=== PATIENT | female | born 1945 | race Caucasian/White ===

== ENCOUNTER → 2023-08-01 08:53 | Outpatient (REF) | payer MEDICARE, OTHER, SELFPAY ==
[2023-08-01 09:33] LABS: % Basophils 0.8 % (0-2); % Eosinophils 2.2 % (0-6); % Immature Granulocytes 0.5 % (0-0.5); % Lymphocytes 22.4 % (20.5-51.1); % Monocytes 8.9 % (1.7-9.3); % Neutrophils 65.2 % (42.2-75.2); Absolute Eosinophils 0.1 10^3/uL (0-0.7); Absolute Lymphocytes 0.8 10^3/uL (1.2-3.4); Absolute Monocytes 0.3 10^3/uL (0.1-0.6); Absolute Neutrophils 2.4 10^3/uL (1.4-6.5); Hematocrit 34.1 % (37.0-47.0); Hemoglobin 11.4 g/dL (12.0-16.0); Mean Corp Hgb Conc. 33.4 g/dL (33.0-37.0); Mean Corpuscular Volume 95.8 fL (81.0-99.0); Mean Platelet Volume 12.6 fL (7.4-10.4); Nucleated Red Blood Cells % 0 %; Platelet Count 116 10^3/uL (130-400); Red Blood Cell Count 3.56 10^6/uL (4.20-5.40); Red Cell Dist. Width 12.9 % (11.5-14.5); White Blood Cell Count 3.7 10^3/uL (4.8-10.8)
[2023-08-01 10:00] LABS: ALT (SGPT) 24 U/L (0-35); AST (SGOT) 34 U/L (14-36); Albumin 3.7 g/dl (3.5-5.0); Alkaline Phosphatase 103 U/L (38-126); Blood Urea Nitrogen 19 mg/dl (7-17); Calcium 8.9 mg/dl (8.4-10.2); Carbon Dioxide 29 mmol/L (22-30); Chloride 108 mmol/L (98-107); Glucose 87 mg/dl (70-99); LDH 220 U/L (120-246); Sodium 138 mmol/L (135-145); Total Bilirubin 0.8 mg/dl (0.2-1.3); Total Protein 5.8 g/dl (6.3-8.2); eGFR 23.82
[2023-08-03 02:05] LABS: Beta-2-Microglobulin 4.8 mg/L (<=3.0)
[2023-08-04 17:23] LABS: Albumin 3.74 g/dL (3.75-5.01); Alpha 1 Globulin 0.29 g/dL (0.19-0.46); Free Kappa Light Chains,Quant 98.97 mg/L (3.30-19.40); Free Lambda Light Chains,Quant 17.68 mg/L (5.71-26.30); IgA 85 mg/dL (68-408); IgG 388 mg/dL (768-1632); IgM 405 mg/dL (35-263); Immunofixation Electrophoresis IFE Done; Monoclonal Protein 0.31 g/dL
== END ==
LOC: REG 08:53
PROVIDERS: ATTENDING PHYSICIAN Internal Medicine Hematology & Oncology; FAMILY PHYSICIAN Family Medicine; REFERRING PHYSICIAN Internal Medicine
DX: C88.4 Extranodal marginal zone B-cell lymphoma of mucosa-associated lymphoid tissue [MALT-lymphoma] (principal); C83.03 Small cell B-cell lymphoma, intra-abdominal lymph nodes; C88.0 Waldenstrom macroglobulinemia; Z45.2 Encounter for adjustment and management of vascular access device; Z51.11 Encounter for antineoplastic chemotherapy
CPT/HCPCS: 36415; 80053; 82232; 82784; 83521; 83615; 84155; 84165; 85025; 86334

== ENCOUNTER → 2023-10-30 08:08 | Outpatient (REF) | payer MEDICARE, OTHER, SELFPAY ==
[2023-10-30 12:37] LABS: Albumin 4.1 g/dl (3.5-5.0); Blood Urea Nitrogen 23 mg/dl (7-17); Calcium 9.3 mg/dl (8.4-10.2); Carbon Dioxide 27 mmol/L (22-30); Chloride 106 mmol/L (98-107); Glucose 90 mg/dl (70-99); Phosphorus 3.9 mg/dl (2.5-4.5); Potassium 4.1 mmol/L (3.5-5.1); Sodium 141 mmol/L (135-145); Urine Protein 21 mg/dl (0-12); eGFR 23.82
[2023-11-01 16:02] LABS: Intact PTH 191.4 pg/ml (13.6-85.8)
== END ==
LOC: REG 08:08
PROVIDERS: ATTENDING PHYSICIAN Internal Medicine; FAMILY PHYSICIAN Family Medicine; OTHER PHYSICIAN Internal Medicine Hematology & Oncology; REFERRING PHYSICIAN Internal Medicine Cardiovascular Disease
DX: N18.32 Chronic kidney disease, stage 3b (principal)
CPT/HCPCS: 36415; 80069; 82570; 83970; 84156

== ENCOUNTER → 2023-11-07 07:47 | Outpatient (REF) | payer MEDICARE, OTHER, SELFPAY ==
[2023-11-07 09:45] LABS: Albumin 3.9 g/dl (3.5-5.0); Blood Urea Nitrogen 26 mg/dl (7-17); Calcium 9.2 mg/dl (8.4-10.2); Carbon Dioxide 25 mmol/L (22-30); Chloride 109 mmol/L (98-107); Glucose 89 mg/dl (70-99); Potassium 4.2 mmol/L (3.5-5.1); Sodium 141 mmol/L (135-145); eGFR 25.26
[2023-11-07 10:00] LABS: Vitamin D, 25-OH*** 80.4 ng/mL (30-80)
== END ==
LOC: REG 07:47
PROVIDERS: ATTENDING PHYSICIAN Internal Medicine; FAMILY PHYSICIAN Family Medicine; OTHER PHYSICIAN Internal Medicine Cardiovascular Disease; REFERRING PHYSICIAN Internal Medicine Hematology & Oncology
DX: N28.9 Disorder of kidney and ureter, unspecified (principal); I10 Essential (primary) hypertension; E78.5 Hyperlipidemia, unspecified; I50.22 Chronic systolic (congestive) heart failure
CPT/HCPCS: 36415; 80069; 82306

== ENCOUNTER → 2023-11-26 07:27 | Outpatient (REF) | payer MEDICARE, OTHER, SELFPAY ==
[2023-11-26 08:07] LABS: Urine Albumin Negative (Neg - Trace); Urine Bilirubin Negative (Negative); Urine Character Clear (Clear); Urine Color Yellow; Urine Glucose Negative (Negative); Urine Ketone Negative (Negative); Urine Leukocyte Trace (Negative); Urine Nitrite Negative (Negative); Urine Occult Blood Negative (Negative); Urine Urobilinogen Negative (Neg - 1+)
[2023-11-26 08:15] LABS: % Basophils 0.6 % (0-2); % Eosinophils 1.2 % (0-6); % Immature Granulocytes 0.4 % (0-0.5); % Lymphocytes 18.9 % (20.5-51.1); % Monocytes 10.5 % (1.7-9.3); % Neutrophils 68.4 % (42.2-75.2); Absolute Eosinophils 0.1 10^3/uL (0-0.7); Absolute Lymphocytes 0.9 10^3/uL (1.2-3.4); Absolute Monocytes 0.5 10^3/uL (0.1-0.6); Absolute Neutrophils 3.4 10^3/uL (1.4-6.5); Hematocrit 36.8 % (37.0-47.0); Hemoglobin 12.3 g/dL (12.0-16.0); Mean Corp Hgb Conc. 33.4 g/dL (33.0-37.0); Mean Corpuscular Hgb 31.4 pg (27.0-31.0); Mean Corpuscular Volume 93.9 fL (81.0-99.0); Mean Platelet Volume 12.1 fL (7.4-10.4); Nucleated Red Blood Cells % 0 %; Platelet Count 133 10^3/uL (130-400); Red Blood Cell Count 3.92 10^6/uL (4.20-5.40); Red Cell Dist. Width 12.5 % (11.5-14.5)
[2023-11-26 08:33] LABS: Urine Bacteria Few (Negative); Urine Red Blood Cell 0-2 /HPF (0-2); Urine White Cell 0-2 /HPF (0-5)
[2023-11-26 08:56] LABS: ALT (SGPT) 27 U/L (0-35); AST (SGOT) 34 U/L (14-36); Albumin 4.2 g/dl (3.5-5.0); Alkaline Phosphatase 125 U/L (38-126); Blood Urea Nitrogen 27 mg/dl (7-17); Calcium 9.1 mg/dl (8.4-10.2); Carbon Dioxide 27 mmol/L (22-30); Chloride 107 mmol/L (98-107); Glucose 92 mg/dl (70-99); HDL Cholesterol 80 mg/dl; LDH 251 U/L (120-246); LDL Cholesterol, Calculated 81 mg/dl; Potassium 3.9 mmol/L (3.5-5.1); Sodium 142 mmol/L (135-145); Total Bilirubin 0.7 mg/dl (0.2-1.3); Total Cholesterol 177 mg/dl (50-199); Total Protein 6.5 g/dl (6.3-8.2); Triglyceride 83 mg/dl (10-149); Very Low Density Lipoprotein 16 mg/dl (0-30); eGFR 23.82
[2023-11-26 09:28] LABS: TSH 5.04 uIU/ml (0.47-4.68)
[2023-11-28 20:07] LABS: Albumin 3.84 g/dL (3.75-5.01); Alpha 2 Globulin 0.79 g/dL (0.48-1.05); Free Kappa Light Chains,Quant 113.71 mg/L (3.30-19.40); Free Lambda Light Chains,Quant 17.38 mg/L (5.71-26.30); IgA 83 mg/dL (68-408); IgG 405 mg/dL (768-1632); IgM 382 mg/dL (35-263); Immunofixation Electrophoresis IFE Done; Kappa/Lambda Fr Light Ratio 6.54 (0.26-1.65); Monoclonal Protein 0.37 g/dL (<=0.00); Total Protein-Electrophoresis 6.2 g/dL (6.3-8.2)
== END ==
LOC: REG 07:27
PROVIDERS: ATTENDING PHYSICIAN Internal Medicine Hematology & Oncology; FAMILY PHYSICIAN Family Medicine; REFERRING PHYSICIAN Internal Medicine Cardiovascular Disease
DX: C88.4 Extranodal marginal zone B-cell lymphoma of mucosa-associated lymphoid tissue [MALT-lymphoma] (principal); C83.03 Small cell B-cell lymphoma, intra-abdominal lymph nodes; C88.0 Waldenstrom macroglobulinemia; Z45.2 Encounter for adjustment and management of vascular access device; Z51.11 Encounter for antineoplastic chemotherapy; Z00.00 Encounter for general adult medical examination without abnormal findings; N18.9 Chronic kidney disease, unspecified; I10 Essential (primary) hypertension
CPT/HCPCS: 36415; 80053; 80061; 81003; 81015; 82784; 83521; 83615; 84155; 84165; 84443; 85025; 86334

== ENCOUNTER → 2023-11-29 11:26 | Outpatient (REF) | payer MEDICARE, OTHER, SELFPAY | LOC: HWRAD 11:26 | PROVIDERS: ATTENDING PHYSICIAN Internal Medicine Hematology & Oncology; FAMILY PHYSICIAN Family Medicine | DX: C88.4 Extranodal marginal zone B-cell lymphoma of mucosa-associated lymphoid tissue [MALT-lymphoma] (principal); C83.03 Small cell B-cell lymphoma, intra-abdominal lymph nodes | CPT/HCPCS: 71250; 74176 ==

== ENCOUNTER 2023-12-09 10:14 | Day surgery (SDC) | payer MEDICARE, OTHER, SELFPAY ==
--- NOTE | 2023-12-09 08:40 | W.ICD.CONTRA ---
Post ICD/QUARTZ MINER-D
-
History of MD?: No
LV Function
Left ventricular function study result?: Ejection Fraction >/= 40%
ACEI/ARB/ARNI
Patient already on ACEI/ARB/ARNI: No
ACEI/ARB/ARNI Not Indicated: Left Ventricular EF >/= 40%
Beta-Jimmy
Patient already on Beta Jimmy: Yes
[2023-12-09 10:42] VITALS: BP 153/71
[2023-12-09 14:57] VITALS: BP 142/54
[2023-12-09 15:12] VITALS: BP 151/56
--- NOTE | 2023-12-09 15:18 | ITS.CL.ICD ---
Business Intelligence Consultant - ICD
Implantable Cardioverter Defibrillator
Procedure Report:
ICD GENERATOR CHANGE REPORT
Date of Procedure: December 09, 2023
PROCEDURES:
1. Removal of ICD Generator, 2. ICD Implant
INDICATION FOR PROCEDURE:
1. ICD at [facility]
2. CARDIOMYOPATHY
Life expectancy > 1 yr
'Time-out' was called and confirmed. The patient was prepped and draped in sterile fashion. Lidocaine with epi was used for local anesthesia. An incision was made along the previous incision and the device and leads were carefully dissected from
the pocket. Hemostasis was obtained with electrocautery. The leads were from the device header and tested using an external analyzer. The pocket was liberally irrigated with antibiotic solution. Once testing (see below) showed adequate
and stable function, the leads were connected to the generator header and the leads and generator were placed within the pocket. The pocket was closed in the typical fashion.
Of note, patient had bruising over the site of her ICD which was observed prior to our procedure today. Patient and family provides history that recently there were attempts to access her 'port', but multiple attempts at access were performed at
the anatomic location of her ICD on the left side and not her port on the right side. The multiple attempts at needle insertion at this site resulted in bruising.
Antibiotic pouch placed.
EXISTING ICD Medtronic
IMPLANTED ICD: MEDTRONIC [id number], [id number]
EXISTING LEADS:
RA: Medtronic 5076
RV: Medtronic 6935
LV: Medtronic 4298
DEVICE TESTING:
Sensing: RA 2 mV, RV 20 mV,
Capture: RA 0.5 V@ 0.4 ms, RV 1 V@ 0.4 ms, LV 1.25 V@ 0.4 ms,
Ohms: RA 361, RV 361, LV 589
FINAL PROGRAMMING:
Geovanny Pacing: DDDR 50 - 130 ppm
Tachy parameters:
VF: 188 bpm, ATP while charging, Shock
CONCLUSIONS:
1. Explant of ICD at [facility]
2. Successful implant ICD generator.
3. Normal function of ICD and leads at implant testing.
Note, this entire system is MRI compatible
RECOMMENDATIONS:
1. Observation and consideration for discharge home later today.
2. In-Office wound check in 7 - 10 days.
Copy to: Dr Chen Schaeffer
[2023-12-09 15:22] VITALS: BP 169/57
[2023-12-09 15:37] VITALS: BP 166/58
[2023-12-09 15:52] VITALS: BP 167/55
== END 2023-12-09 16:05 | disposition home or self-care (01) ==
LOC: CATH 10:14
PROVIDERS: ATTENDING PHYSICIAN Internal Medicine Cardiovascular Disease; FAMILY PHYSICIAN Family Medicine; OTHER PHYSICIAN Internal Medicine Cardiovascular Disease
DX: Z45.02 Encounter for adjustment and management of automatic implantable cardiac defibrillator (principal); I42.9 Cardiomyopathy, unspecified; I50.22 Chronic systolic (congestive) heart failure; I11.0 Hypertensive heart disease with heart failure; I34.0 Nonrheumatic mitral (valve) insufficiency; R91.1 Solitary pulmonary nodule; N28.9 Disorder of kidney and ureter, unspecified
CPT/HCPCS: 33264; C1882

== ENCOUNTER → 2024-01-01 08:23 | Outpatient (REF) | payer MEDICARE, OTHER, SELFPAY | LOC: RAD 08:23 | PROVIDERS: ATTENDING PHYSICIAN Family Medicine; OTHER PHYSICIAN Internal Medicine Critical Care Medicine; REFERRING PHYSICIAN Internal Medicine Cardiovascular Disease | DX: R91.8 Other nonspecific abnormal finding of lung field (principal) | CPT/HCPCS: 71046 ==

== ENCOUNTER → 2024-01-22 09:27 | Outpatient (REF) | payer MEDICARE, OTHER, SELFPAY | LOC: MRI 09:27 | PROVIDERS: ATTENDING PHYSICIAN Family Medicine | DX: G31.84 Mild cognitive impairment of uncertain or unknown etiology (principal) | CPT/HCPCS: 70551 ==

== ENCOUNTER → 2024-02-28 08:32 | Outpatient (REF) | payer MEDICARE, OTHER, SELFPAY ==
[2024-02-28 09:49] LABS: % Basophils 0.7 % (0-2); % Eosinophils 1.2 % (0-6); % Immature Granulocytes 0.2 % (0-0.5); % Monocytes 10.4 % (1.7-9.3); % Neutrophils 67.5 % (42.2-75.2); Absolute Eosinophils 0.1 10^3/uL (0-0.7); Absolute Lymphocytes 0.9 10^3/uL (1.2-3.4); Absolute Monocytes 0.4 10^3/uL (0.1-0.6); Absolute Neutrophils 2.9 10^3/uL (1.4-6.5); Hematocrit 34.4 % (37.0-47.0); Hemoglobin 11.8 g/dL (12.0-16.0); Mean Corp Hgb Conc. 34.3 g/dL (33.0-37.0); Mean Corpuscular Hgb 32.4 pg (27.0-31.0); Mean Corpuscular Volume 94.5 fL (81.0-99.0); Mean Platelet Volume 12.3 fL (7.4-10.4); Nucleated Red Blood Cells % 0 %; Platelet Count 127 10^3/uL (130-400); Red Blood Cell Count 3.64 10^6/uL (4.20-5.40); Red Cell Dist. Width 12.3 % (11.5-14.5); White Blood Cell Count 4.3 10^3/uL (4.8-10.8)
[2024-02-28 10:21] LABS: Erythrocyte Sed Rate 22 mm/hour (0-20)
[2024-02-28 10:36] LABS: ALT (SGPT) 31 U/L (0-35); AST (SGOT) 42 U/L (14-36); Alkaline Phosphatase 100 U/L (38-126); Blood Urea Nitrogen 24 mg/dl (7-17); Calcium 9.4 mg/dl (8.4-10.2); Carbon Dioxide 28 mmol/L (22-30); Chloride 105 mmol/L (98-107); Glucose 87 mg/dl (70-99); Potassium 4.3 mmol/L (3.5-5.1); Sodium 142 mmol/L (135-145); Total Bilirubin 0.8 mg/dl (0.2-1.3); Total Protein 6.1 g/dl (6.3-8.2); eGFR 25.26
[2024-02-28 11:06] LABS: TSH Reflex To Free T4 3.28 uIU/ml (0.47-4.68)
[2024-02-28 11:42] LABS: Folate > 20.0 ng/ml (2.76-20); Vitamin B12 > 1000 pg/ml (239-931)
== END ==
LOC: REG 08:32
PROVIDERS: ATTENDING PHYSICIAN Specialist; FAMILY PHYSICIAN Family Medicine; OTHER PHYSICIAN Internal Medicine Cardiovascular Disease; OTHER PHYSICIAN Internal Medicine Hematology & Oncology; REFERRING PHYSICIAN Internal Medicine
DX: G93.41 Metabolic encephalopathy (principal); Z79.899 Other long term (current) drug therapy; I10 Essential (primary) hypertension
CPT/HCPCS: 36415; 80053; 82607; 82746; 84443; 85025; 85652

== ENCOUNTER → 2024-03-23 08:17 | Outpatient (REF) | payer MEDICARE, OTHER, SELFPAY | LOC: RCS 08:17 | PROVIDERS: ATTENDING PHYSICIAN Internal Medicine Cardiovascular Disease; FAMILY PHYSICIAN Family Medicine | DX: I50.22 Chronic systolic (congestive) heart failure (principal) | CPT/HCPCS: 93306 ==

== ENCOUNTER → 2024-03-23 13:35 | Outpatient (REF) | payer MEDICARE, OTHER, SELFPAY | LOC: MRI 13:35 | PROVIDERS: ATTENDING PHYSICIAN Internal Medicine Gastroenterology; FAMILY PHYSICIAN Family Medicine | DX: D49.0 Neoplasm of unspecified behavior of digestive system (principal) | CPT/HCPCS: 74183; A9575 ==

== ENCOUNTER → 2024-04-07 08:11 | Outpatient (REF) | payer MEDICARE, OTHER, SELFPAY ==
[2024-04-07 10:30] LABS: Free T4 2.24 ng/dl (0.78-2.19)
[2024-04-07 10:44] LABS: TSH 2.68 uIU/ml (0.47-4.68)
== END ==
LOC: REG 08:11
PROVIDERS: ATTENDING PHYSICIAN Internal Medicine Cardiovascular Disease; FAMILY PHYSICIAN Family Medicine
DX: I50.22 Chronic systolic (congestive) heart failure (principal)
CPT/HCPCS: 36415; 84439; 84443

== ENCOUNTER → 2024-05-25 08:58 | Outpatient (REF) | payer MEDICARE, OTHER, SELFPAY ==
[2024-05-25 09:39] LABS: % Basophils 0.5 % (0-2); % Eosinophils 1.8 % (0-6); % Immature Granulocytes 0.5 % (0-0.5); % Lymphocytes 19.4 % (20.5-51.1); % Monocytes 11.8 % (1.7-9.3); Absolute Eosinophils 0.1 10^3/uL (0-0.7); Absolute Lymphocytes 0.8 10^3/uL (1.2-3.4); Absolute Monocytes 0.5 10^3/uL (0.1-0.6); Absolute Neutrophils 2.6 10^3/uL (1.4-6.5); Hematocrit 35.7 % (37.0-47.0); Hemoglobin 11.3 g/dL (12.0-16.0); Mean Corp Hgb Conc. 31.7 g/dL (33.0-37.0); Mean Corpuscular Hgb 31.1 pg (27.0-31.0); Mean Corpuscular Volume 98.3 fL (81.0-99.0); Mean Platelet Volume 12.1 fL (7.4-10.4); Nucleated Red Blood Cells % 0 %; Platelet Count 117 10^3/uL (130-400); Red Blood Cell Count 3.63 10^6/uL (4.20-5.40); Red Cell Dist. Width 12.8 % (11.5-14.5); White Blood Cell Count 3.9 10^3/uL (4.8-10.8)
[2024-05-25 10:05] LABS: ALT (SGPT) 35 U/L (0-35); AST (SGOT) 40 U/L (14-36); Albumin 3.8 g/dl (3.5-5.0); Alkaline Phosphatase 92 U/L (38-126); Blood Urea Nitrogen 21 mg/dl (7-17); Calcium 8.6 mg/dl (8.4-10.2); Carbon Dioxide 29 mmol/L (22-30); Chloride 106 mmol/L (98-107); Glucose 92 mg/dl (70-99); LDH 254 U/L (120-246); Potassium 4.1 mmol/L (3.5-5.1); Sodium 143 mmol/L (135-145); Total Bilirubin 0.6 mg/dl (0.2-1.3); Total Protein 5.8 g/dl (6.3-8.2); eGFR 25.26
[2024-05-28 00:17] LABS: Albumin 3.61 g/dL (3.75-5.01); Alpha 1 Globulin 0.26 g/dL (0.19-0.46); Alpha 2 Globulin 0.67 g/dL (0.48-1.05); Free Kappa Light Chains,Quant 103.44 mg/L (3.30-19.40); Free Lambda Light Chains,Quant 16.31 mg/L (5.71-26.30); IgA 77 mg/dL (68-408); IgG 411 mg/dL (768-1632); IgM 322 mg/dL (35-263); Immunofixation Electrophoresis IFE Done; Kappa/Lambda Fr Light Ratio 6.34 (0.26-1.65); Total Protein-Electrophoresis 5.7 g/dL (6.3-8.2)
== END ==
LOC: REG 08:58
PROVIDERS: Internal Medicine Hematology & Oncology; ATTENDING PHYSICIAN Internal Medicine Cardiovascular Disease; FAMILY PHYSICIAN Family Medicine
DX: C88.40 Extranodal marginal zone B-cell lymphoma of mucosa-associated lymphoid tissue [MALT-lymphoma] not having achieved remission (principal); C83.03 Small cell B-cell lymphoma, intra-abdominal lymph nodes; C88.00 Waldenstrom macroglobulinemia not having achieved remission
CPT/HCPCS: 36415; 80053; 82784; 83521; 83615; 84155; 84165; 85025; 86334

== ENCOUNTER → 2024-09-02 08:49 | Outpatient (REF) | payer MEDICARE, OTHER, SELFPAY ==
[2024-09-02 10:05] LABS: NT-proBNP 2330 pg/ml
[2024-09-02 10:28] LABS: Intact PTH 144.8 pg/ml (13.6-85.8)
[2024-09-02 10:29] LABS: ALT (SGPT) 26 U/L (0-35); AST (SGOT) 34 U/L (14-36); Albumin 4.4 g/dl (3.5-5.0); Alkaline Phosphatase 102 U/L (38-126); Blood Urea Nitrogen 24 mg/dl (7-17); Calcium 9.2 mg/dl (8.4-10.2); Carbon Dioxide 26 mmol/L (22-30); Chloride 104 mmol/L (98-107); Glucose 84 mg/dl (70-99); HDL Cholesterol 73 mg/dl; LDL Cholesterol, Calculated 167 mg/dl; Potassium 4.4 mmol/L (3.5-5.1); Sodium 141 mmol/L (135-145); Total Bilirubin 1.2 mg/dl (0.2-1.3); Total Cholesterol 264 mg/dl (50-199); Total Protein 6.7 g/dl (6.3-8.2); Triglyceride 123 mg/dl (10-149); Very Low Density Lipoprotein 24 mg/dl (0-30); eGFR 23.67
[2024-09-02 10:31] LABS: Protein/creatinine Ratio 0.1; Urine Protein 20 mg/dl
[2024-09-02 10:36] LABS: Vitamin D, 25-OH*** 63.9 ng/mL (30-80)
== END ==
LOC: REG 08:49
PROVIDERS: ATTENDING PHYSICIAN Internal Medicine; FAMILY PHYSICIAN Family Medicine; OTHER PHYSICIAN Internal Medicine Hematology & Oncology; REFERRING PHYSICIAN Internal Medicine Cardiovascular Disease
DX: I10 Essential (primary) hypertension (principal); N25.81 Secondary hyperparathyroidism of renal origin; I50.22 Chronic systolic (congestive) heart failure; E78.5 Hyperlipidemia, unspecified
CPT/HCPCS: 36415; 80053; 80061; 82306; 82570; 83880; 83970; 84100; 84156; 84443

== ENCOUNTER → 2024-10-09 08:29 | Outpatient (REF) | payer MEDICARE, OTHER, SELFPAY | LOC: REG 08:29 | PROVIDERS: ATTENDING PHYSICIAN Specialist; FAMILY PHYSICIAN Family Medicine; OTHER PHYSICIAN Internal Medicine; REFERRING PHYSICIAN Internal Medicine Cardiovascular Disease | DX: G30.1 Alzheimer's disease with late onset (principal) | CPT/HCPCS: 36415 ==

== ENCOUNTER → 2024-11-19 07:16 | Outpatient (REF) | payer MEDICARE, OTHER, SELFPAY | LOC: RAD 07:16 | PROVIDERS: ATTENDING PHYSICIAN Internal Medicine Hematology & Oncology; FAMILY PHYSICIAN Family Medicine; OTHER PHYSICIAN Internal Medicine; REFERRING PHYSICIAN Internal Medicine Cardiovascular Disease | DX: C88.40 Extranodal marginal zone B-cell lymphoma of mucosa-associated lymphoid tissue [MALT-lymphoma] not having achieved remission (principal) | CPT/HCPCS: 71250; 74176 ==

== ENCOUNTER → 2024-11-26 09:27 | Outpatient (REF) | payer MEDICARE, OTHER, SELFPAY ==
[2024-11-26 10:07] LABS: % Basophils 0.8 % (0-2); % Eosinophils 0.8 % (0-6); % Immature Granulocytes 0.6 % (0-0.5); % Lymphocytes 21.7 % (20.5-51.1); % Neutrophils 67.1 % (42.2-75.2); Absolute Lymphocytes 1.1 10^3/uL (1.2-3.4); Absolute Monocytes 0.4 10^3/uL (0.1-0.6); Absolute Neutrophils 3.3 10^3/uL (1.4-6.5); Hematocrit 37.7 % (37.0-47.0); Hemoglobin 12.5 g/dL (12.0-16.0); Mean Corp Hgb Conc. 33.2 g/dL (33.0-37.0); Mean Corpuscular Hgb 31.7 pg (27.0-31.0); Mean Corpuscular Volume 95.7 fL (81.0-99.0); Mean Platelet Volume 11.7 fL (7.4-10.4); Nucleated Red Blood Cells % 0 %; Platelet Count 141 10^3/uL (130-400); Red Blood Cell Count 3.94 10^6/uL (4.20-5.40); Red Cell Dist. Width 12.7 % (11.5-14.5); White Blood Cell Count 4.9 10^3/uL (4.8-10.8)
[2024-11-26 11:32] LABS: ALT (SGPT) 28 U/L (0-35); AST (SGOT) 37 U/L (14-36); Albumin 4.2 g/dl (3.5-5.0); Alkaline Phosphatase 89 U/L (38-126); Blood Urea Nitrogen 24 mg/dl (7-17); Calcium 9.5 mg/dl (8.4-10.2); Carbon Dioxide 28 mmol/L (22-30); Chloride 109 mmol/L (98-107); Glucose 93 mg/dl (70-99); HDL Cholesterol 67 mg/dl; Iron 115 ug/dl (37-170); LDH 262 U/L (120-246); LDL Cholesterol, Calculated 87 mg/dl; Sodium 143 mmol/L (135-145); Total Bilirubin 0.8 mg/dl (0.2-1.3); Total Cholesterol 179 mg/dl (50-199); Total Protein 6.5 g/dl (6.3-8.2); Triglyceride 129 mg/dl (10-149); Very Low Density Lipoprotein 25 mg/dl (0-30)
[2024-11-26 11:41] LABS: Percent Saturation 39 % (20-50); Total Iron Binding Capacity 294 ug/dl (265-497)
[2024-11-26 11:54] LABS: TSH 3.09 uIU/ml (0.47-4.68)
[2024-11-26 13:40] LABS: Urine Albumin 2+ (Neg - Trace); Urine Bilirubin Negative (Negative); Urine Character Clear (Clear); Urine Glucose Negative (Negative); Urine Ketone Negative (Negative); Urine Leukocyte 2+ (Negative); Urine Nitrite Negative (Negative); Urine Occult Blood Negative (Negative); Urine Specific Gravity 1.015 (<1.030); Urine Urobilinogen Negative (Neg - 1+)
[2024-11-26 13:45] LABS: Urine Color Yellow
[2024-11-26 13:53] LABS: Urine Bacteria Few (Negative); Urine Mucus Few; Urine Red Blood Cell 0-2 /HPF (0-2)
[2024-11-26 15:38] LABS: Ferritin 53.1 ng/ml (11.1-264.0)
== END ==
LOC: REG 09:27
PROVIDERS: ATTENDING PHYSICIAN Internal Medicine Hematology & Oncology; FAMILY PHYSICIAN Family Medicine; OTHER PHYSICIAN Internal Medicine; REFERRING PHYSICIAN Internal Medicine Cardiovascular Disease
DX: C88.40 Extranodal marginal zone B-cell lymphoma of mucosa-associated lymphoid tissue [MALT-lymphoma] not having achieved remission (principal); C83.03 Small cell B-cell lymphoma, intra-abdominal lymph nodes; C88.00 Waldenstrom macroglobulinemia not having achieved remission; Z00.00 Encounter for general adult medical examination without abnormal findings; N18.9 Chronic kidney disease, unspecified; I10 Essential (primary) hypertension
CPT/HCPCS: 36415; 80053; 80061; 81003; 81015; 82728; 82784; 83521; 83540; 83550; 83615; 84155; 84165; 84443; 85025; 86334

== ENCOUNTER → 2024-12-09 12:52 | Outpatient (REF) | payer MEDICARE, OTHER, SELFPAY ==
[2024-12-09 13:10] VITALS: BP 158/54; BP_SYST 65
[2024-12-09 13:53] VITALS: BP 142/70; BP_SYST 59
== END ==
LOC: RADI 12:52
PROVIDERS: ATTENDING PHYSICIAN Internal Medicine Hematology & Oncology; FAMILY PHYSICIAN Family Medicine
DX: Z45.2 Encounter for adjustment and management of vascular access device (principal); C88.40 Extranodal marginal zone B-cell lymphoma of mucosa-associated lymphoid tissue [MALT-lymphoma] not having achieved remission
CPT/HCPCS: 36590; 77001

== ENCOUNTER → 2024-12-11 08:20 | Outpatient (REF) | payer MEDICARE, OTHER, SELFPAY | LOC: RAD 08:20 | PROVIDERS: ATTENDING PHYSICIAN Family Medicine | DX: M54.50 Low back pain, unspecified (principal) | CPT/HCPCS: 72114 ==

== ENCOUNTER → 2025-01-12 09:31 | Outpatient (REF) | payer MEDICARE, OTHER, SELFPAY ==
[2025-01-12 11:29] LABS: AST (SGOT) 38 U/L (14-36); Albumin 3.6 g/dl (3.5-5.0); Alkaline Phosphatase 81 U/L (38-126); Blood Urea Nitrogen 24 mg/dl (7-17); Calcium 9.0 mg/dl (8.4-10.2); Carbon Dioxide 29 mmol/L (22-30); Chloride 110 mmol/L (98-107); Glucose 86 mg/dl (70-99); HDL Cholesterol 53 mg/dl; Sodium 142 mmol/L (135-145); Total Protein 5.8 g/dl (6.3-8.2); eGFR 23.67
[2025-01-12 12:56] LABS: ALT (SGPT) 33 U/L (0-35); LDL Cholesterol, Calculated 81 mg/dl; Potassium 4.2 mmol/L (3.5-5.1); Very Low Density Lipoprotein 22 mg/dl (0-30)
== END ==
LOC: REG 09:31
PROVIDERS: ATTENDING PHYSICIAN Internal Medicine Cardiovascular Disease; FAMILY PHYSICIAN Family Medicine; REFERRING PHYSICIAN Internal Medicine
DX: N28.9 Disorder of kidney and ureter, unspecified (principal); E78.5 Hyperlipidemia, unspecified
CPT/HCPCS: 36415; 80053; 80061

== ENCOUNTER → 2025-03-31 08:03 | Outpatient (REF) | payer MEDICARE, OTHER, SELFPAY | LOC: HWRAD 08:03 | PROVIDERS: ATTENDING PHYSICIAN Internal Medicine Critical Care Medicine; FAMILY PHYSICIAN Family Medicine | DX: J84.9 Interstitial pulmonary disease, unspecified (principal) | CPT/HCPCS: 71250 ==

== ENCOUNTER → 2025-05-24 10:36 | Outpatient (REF) | payer MEDICARE, OTHER, SELFPAY ==
[2025-05-24 11:55] LABS: Hematocrit 35.5 % (37.0-47.0); Hemoglobin 11.2 g/dL (12.0-16.0); Mean Corp Hgb Conc. 31.5 g/dL (33.0-37.0); Mean Corpuscular Volume 97.5 fL (81.0-99.0); Nucleated Red Blood Cells % 0 %; Platelet Count 140 10^3/uL (130-400); Red Cell Dist. Width 12.6 % (11.5-14.5)
[2025-05-24 11:57] LABS: ALT (SGPT) 44 U/L (0-35); AST (SGOT) 53 U/L (14-36); Albumin 3.8 g/dl (3.5-5.0); Alkaline Phosphatase 97 U/L (38-126); Blood Urea Nitrogen 26 mg/dl (7-17); Calcium 8.9 mg/dl (8.4-10.2); Carbon Dioxide 29 mmol/L (22-30); Chloride 109 mmol/L (98-107); Glucose 87 mg/dl (70-99); Iron 97 ug/dl (37-170); LDH 241 U/L (120-246); Potassium 4.4 mmol/L (3.5-5.1); Sodium 140 mmol/L (135-145); Total Protein 6.1 g/dl (6.3-8.2); eGFR 22.39
[2025-05-24 12:07] LABS: Total Iron Binding Capacity 297 ug/dl (265-497)
[2025-05-24 12:08] LABS: C-Reactive Protein < 5.00 mg/L (0.0-10.00)
[2025-05-24 12:43] LABS: Ferritin 36.4 ng/ml (11.1-264.0)
[2025-05-24 13:19] LABS: Rheumatoid Agglutinin Less Than 10 IU (<10 IU)
[2025-05-25 19:29] LABS: ANA, IgG Reflex to HEp-2 None Detected (None Detected)
[2025-05-25 19:40] LABS: Serine Protease-3, IgG 0 AU/mL (0-19)
[2025-05-26 00:16] LABS: Jo-1 Antibodies 2 AU/mL (0-40); SSA 52 (Ro)(ENA) Ab, IgG 1 AU/mL (0-40); SSA 60 (Ro)(ENA) Ab, IgG 0 AU/mL (0-40); SSB (La)(ENA) Ab, IgG 0 AU/mL (0-40)
[2025-05-26 09:19] LABS: ds-DNA Ab, IgG Reflex To Titer 13 IU (0-24)
[2025-05-26 14:32] LABS: Albumin 3.57 g/dL (3.75-5.01); Free Kappa Light Chains,Quant 92.74 mg/L (3.30-19.40); Free Lambda Light Chains,Quant 20.54 mg/L (5.71-26.30); Immunofixation Electrophoresis IFE Done; Kappa/Lambda Fr Light Ratio 4.52 (0.26-1.65); Total Protein-Electrophoresis 5.8 g/dL (6.3-8.2)
== END ==
LOC: REG 10:36
PROVIDERS: ATTENDING PHYSICIAN Internal Medicine Hematology & Oncology; FAMILY PHYSICIAN Family Medicine; OTHER PHYSICIAN Internal Medicine; OTHER PHYSICIAN Internal Medicine Cardiovascular Disease; REFERRING PHYSICIAN Internal Medicine Critical Care Medicine
DX: C88.40 Extranodal marginal zone B-cell lymphoma of mucosa-associated lymphoid tissue [MALT-lymphoma] not having achieved remission (principal); C83.03 Small cell B-cell lymphoma, intra-abdominal lymph nodes; C88.00 Waldenstrom macroglobulinemia not having achieved remission; J84.9 Interstitial pulmonary disease, unspecified
CPT/HCPCS: 36415; 80053; 82085; 82164; 82550; 82728; 82784; 83516; 83521; 83540; 83550; 83615; 83880; 84155; 84165; 85025; 85652; 86038; 86140; 86225; 86235; 86331; 86334; 86430; 86606

== ENCOUNTER 2025-05-25 10:47 | Outpatient (RCR) | payer MEDICARE, OTHER, SELFPAY | END 2025-05-25 23:59 | disposition home or self-care (01) | LOC: RPT 10:47 | PROVIDERS: ATTENDING PHYSICIAN Neurological Surgery; FAMILY PHYSICIAN Internal Medicine Pulmonary Disease | DX: M47.816 Spondylosis without myelopathy or radiculopathy, lumbar region (principal); Z73.6 Limitation of activities due to disability; R26.89 Other abnormalities of gait and mobility | CPT/HCPCS: 97010; 97110; 97162 ==

== ENCOUNTER 2025-06-01 15:07 | Outpatient (RCR) | payer MEDICARE, OTHER, SELFPAY | END 2025-06-02 05:57 | disposition home or self-care (01) | LOC: RPT 15:07 | PROVIDERS: ATTENDING PHYSICIAN Neurological Surgery; FAMILY PHYSICIAN Internal Medicine Pulmonary Disease | DX: M47.816 Spondylosis without myelopathy or radiculopathy, lumbar region (principal); R26.89 Other abnormalities of gait and mobility; Z73.6 Limitation of activities due to disability | CPT/HCPCS: 97110 ==

== ENCOUNTER → 2025-06-15 07:13 | Outpatient (REF) | payer MEDICARE, OTHER, SELFPAY | LOC: RCS 07:13 | PROVIDERS: ATTENDING PHYSICIAN Internal Medicine Cardiovascular Disease; FAMILY PHYSICIAN Family Medicine; OTHER PHYSICIAN Internal Medicine Hematology & Oncology; REFERRING PHYSICIAN Internal Medicine Critical Care Medicine | DX: I50.22 Chronic systolic (congestive) heart failure (principal); I35.1 Nonrheumatic aortic (valve) insufficiency | CPT/HCPCS: 93306 ==